=== PATIENT | male | born 1980 | race Two or more races ===

== ENCOUNTER 2019-11-21 21:44 | Emergency (ER) | payer SELFPAY ==
[~2019-11-21] VITALS: Ht 177.8 cm; Wt 68.0 kg
[2019-11-21 21:44] VITALS: BP 132/64
[2019-11-21] MEDS ORDERED: TDAP [DIPH/PERTUSSIS/TET] 0.5 ML VIAL IM ONE ×2 (22:26→22:30)
[2019-11-21] MEDS ORDERED: BACITRACIN ZINC OINT PACKET 1 EA PACKET TP ONE (22:30)
== END 2019-11-21 22:47 | disposition home or self-care (01) ==
LOC: ER 21:47
DX: T25.222A Burn of second degree of left foot, initial encounter (principal); T25.221A Burn of second degree of right foot, initial encounter; T73.0XXA Starvation, initial encounter; Z59.0 Homelessness; X08.8XXA Exposure to other specified smoke, fire and flames, initial encounter; Y93.89 Activity, other specified; Y92.89 Other specified places as the place of occurrence of the external cause; Y99.8 Other external cause status
CPT/HCPCS: 16020; 90471; 90715; 99283; A6403

== ENCOUNTER 2020-01-25 22:11 | Emergency (ER) | payer OTHER ==
[~2020-01-25] VITALS: Ht 177.8 cm; Wt 59.0 kg
[2020-01-25 22:12] VITALS: BP 132/78
[2020-01-25] MEDS ORDERED: KETOROLAC TROMETHAMINE INJ 60 MG/2 ML VIAL IM ONE ×2 (22:29→22:30)
== END 2020-01-25 23:20 | disposition home or self-care (01) ==
LOC: ER 22:13
DX: S90.822A Blister (nonthermal), left foot, initial encounter (principal); S90.821A Blister (nonthermal), right foot, initial encounter; R45.1 Restlessness and agitation; Z59.0 Homelessness; X58.XXXA Exposure to other specified factors, initial encounter; Y93.89 Activity, other specified; Y92.89 Other specified places as the place of occurrence of the external cause; Y99.8 Other external cause status
CPT/HCPCS: 96372; 99283; J1885

== ENCOUNTER 2021-11-23 04:04 | Emergency (ER) | payer OTHER ==
[~2021-11-23] VITALS: Ht 180.3 cm; Wt 79.4 kg
--- NOTE | 2021-11-23 04:45 | NUR ---
RAD AT BED SIDE
--- NOTE | 2021-11-23 05:51 | NUR ---
Patient discharged to home in stable condition. Written and verbal after care instructions given. Patient verbalizes understanding of instruction.
[2021-11-23 05:52] VITALS: BP 130/88
== END 2021-11-23 05:52 | disposition home or self-care (01) ==
LOC: ER 04:08
DX: M79.672 Pain in left foot (principal)
CPT/HCPCS: 73630-TC

== ENCOUNTER 2022-05-26 12:02 | Emergency (ER) | payer OTHER ==
[~2022-05-26] VITALS: Ht 177.8 cm; Wt 72.6 kg
--- NOTE | 2022-05-26 12:05 | NUR ---
BIB [facility] AND [employer] FOR CLEARANCE FOR BOOKING, PT COMPLAINING OF BUTTOCKS PAIN, HAS ABSCESS, PAIN 10/10
[2022-05-26] MEDS ORDERED: CEPH500C2 PO (14:17)
[2022-05-26] MEDS ORDERED: CEPHALEXIN MONOHYDRATE 500 MG CAPSULE PO ONE ×2 (14:27→14:30)
--- NOTE | 2022-05-26 14:43 | NUR ---
Patient discharged to [employer] officers. Written and verbal after care instructions given. Patient and [employer]forcers verbalizes understanding of instruction. ok to book note provided
[2022-05-26 14:44] VITALS: BP 131/76
== END 2022-05-26 14:45 | disposition home or self-care (01) ==
LOC: ER 12:12
DX: L03.317 Cellulitis of buttock (principal); Z60.2 Problems related to living alone